=== PATIENT | female | born 1960 | race African-American/Black ===

== ENCOUNTER 2017-07-06 05:50 | Inpatient (IN) | payer MEDICARE, OTHER ==
[~2017-07-06] VITALS: Ht 170.2 cm; Wt 80.9 kg
[~2017-07-06 05:50] MED LIST: ALBU8.5H3 IH; AMLO-512 PO; AMLO10TA55 PO; ASPI81TA39 PO; BISA5TAB12 PO; CALC-895 PO; CYCL10 PO; ESTR-95 PO; MELO-107 PO; OMEP20 PO; PERCT10 PO; PREM125 PO; PROV5 PO
[2017-07-06] MEDS ORDERED: CeFAZolin 2 GM/DEXTROSE 50 ML IV ONE ×2 (05:57→08:00)
[2017-07-06] MEDS ORDERED: RINGERS SOLUTION,LACTATED 1,000 ML IV ONE ×2 (05:57→06:00)
[2017-07-06] MEDS ORDERED: VANCOMYCIN HCL 1 GM/VIAL ONE (06:56)
[2017-07-06] MEDS ORDERED: BUPIVACAINE HCL/PF 0.5% 30 ML VIAL ONE (06:57)
[2017-07-06] MEDS ORDERED: SODIUM CL IRRIG SOLN BAG 3,000 ML IRRIG ONE (06:58)
[2017-07-06 07:15] LABS: BASOPHILS # (AUTO) 0.01 K/uL (0.00-0.20); BASOPHILS % (AUTO) 0.1 % (0.0-2.0); EOSINOPHILS # (AUTO) 0.28 K/uL (0.00-0.70); EOSINOPHILS % (AUTO) 3.74 % (1.0-6.0); HEMATOCRIT 35.6 % (36-46); HEMOGLOBIN 11.9 g/dL (12.0-16.0); LYMPHOCYTES # (AUTO) 1.5 K/uL (1.0-4.8); LYMPHOCYTES % (AUTO) 19.4 % (22.0-44.0); MEAN CORPUSCULAR HEMOGLOBIN 30.6 pg (26.0-34.0); MEAN CORPUSCULAR HGB CONC 33.4 G/dL (31.0-37.0); MEAN CORPUSCULAR VOLUME 92 fL (80-100); MONOCYTES # (AUTO) 0.6 K/uL (0.1-1.0); MONOCYTES % (AUTO) 8.2 % (2.0-9.0); NEUTROPHILS # (AUTO) 5.1 K/uL (1.8-7.7); NEUTROPHILS % (AUTO) 68.6 % (40.0-70.0); PLATELET COUNT (AUTO) 206 K/uL (150-450); RED BLOOD CELL COUNT(AUTO) 3.89 MIL/uL (4.00-5.20); RED CELL DISTRIBUTION WIDTH 14.8 % (11.5-14.5); WHITE BLOOD COUNT (AUTO) 7.5 K/uL (4.5-11.0)
[2017-07-06] MEDS ORDERED: TRANEXAMIC ACID 1,000 MG in DEXTROSE 5%-WATER 50 ML IV ONE (08:00)
[2017-07-06] MEDS ORDERED: MORPHINE SULFATE 4 MG/ML SYRINGE IVP PRN (08:30)
[2017-07-06] MEDS ORDERED: ZOLPIDEM TARTRATE 5 MG TABLET PO PRN (08:45)
[2017-07-06] MEDS ORDERED: DIAZEPAM 5 MG TABLET PO PRN (08:45)
[2017-07-06] MEDS ORDERED: OXYGEN THERAPY IH SCH (09:45)
[2017-07-06] MEDS ORDERED: MEPERIDINE-PF 25 MG/ML SYRINGE IVP PRN (09:45)
[2017-07-06] MEDS ORDERED: HYDROmorphone 2 MG/ML SYRINGE IVP PRN (09:45)
[2017-07-06] MEDS ORDERED: FentaNYL CITRATE-PF 100 MCG/2 ML VIAL IVP PRN (09:45)
[2017-07-06] MEDS ORDERED: HYDROmorphone 2 MG/ML SYRINGE ONE (09:51)
[2017-07-06] MEDS ORDERED: MEPERIDINE-PF 25 MG/ML SYRINGE ONE (09:51)
[2017-07-06 11:24] VITALS: BP 163/93
[2017-07-06] MEDS: HYDROmorphone 2 MG/ML SYRINGE IVP PRN ×4 (11:54→22:11)
[2017-07-06] MEDS: CYCLOBENZAPRINE HCL 10 MG TABLET PO SCH ×3 (11:54→23:58)
[2017-07-06] MEDS ORDERED: LIDOCAINE HCL/PF 2% 5 ML VIAL INJ ONE (12:00)
[2017-07-06] MEDS ORDERED: ONDANSETRON HCL 4 MG/2 ML VIAL IVP ONE ×2 (12:00→15:15)
[2017-07-06] MEDS ORDERED: KETOROLAC TROMETHAMINE 60 MG/2 ML VIAL IM ONE (12:00)
[2017-07-06] MEDS ORDERED: DEXAMETHASONE SOD PHOS 4 MG/ML VIAL IVP ONE (12:00)
[2017-07-06] MEDS ORDERED: INFLUENZA VIRUS VACCINE QVS 2017-18 (3YR+)/PF 60 MCG/0.5 ML SYRINGE IM ONE (13:00)
[2017-07-06] MEDS: CeFAZolin 2 GM/DEXTROSE 50 ML IV SCH ×2 (14:38→22:01)
[2017-07-06 17:00] VITALS: BP 155/106
[2017-07-06] MEDS: KETOROLAC TROMETHAMINE 30 MG/ML VIAL IVP SCH ×2 (17:17→21:00)
[2017-07-06] MEDS: ESTRADIOL 1 MG TABLET PO SCH (17:17)
[2017-07-06] MEDS: MedroxyPROGESTERone ACET 5 MG TABLET PO SCH (17:18)
[2017-07-06] MEDS: ESTROGENS,CONJUGATED 1.25 MG TABLET PO SCH (17:18)
[2017-07-06] MEDS: AmLODIPine BESYLATE 10 MG TABLET PO SCH (17:19)
[2017-07-06 17:50] VITALS: BP 157/86
[2017-07-06] MEDS: ONDANSETRON HCL 4 MG/2 ML VIAL IVP PRN (18:38)
[2017-07-06] MEDS: ACETAMINOPHEN 1000 MG/ISO-OSM 100 ML IV SCH ×2 (18:40→23:57)
[2017-07-06 20:00] VITALS: BP 145/100
[2017-07-06 23:58] VITALS: BP 150/87
[2017-07-07] MEDS: HYDROmorphone 2 MG/ML SYRINGE IVP PRN ×6 (01:21→20:56)
[2017-07-07] MEDS: KETOROLAC TROMETHAMINE 30 MG/ML VIAL IVP SCH ×4 (04:44→20:57)
[2017-07-07] MEDS ORDERED: PNEUMOCOCCAL VACCINE POLYVALENT 0.5 ML VIAL [PPSV23] IM ONE (04:45)
[2017-07-07 05:00] VITALS: BP 155/82
[2017-07-07] MEDS: CeFAZolin 2 GM/DEXTROSE 50 ML IV SCH (06:15)
[2017-07-07] MEDS: CYCLOBENZAPRINE HCL 10 MG TABLET PO SCH ×3 (06:15→18:06)
[2017-07-07] MEDS: ESTRADIOL 1 MG TABLET PO SCH (08:29)
[2017-07-07] MEDS: MedroxyPROGESTERone ACET 5 MG TABLET PO SCH (08:29)
[2017-07-07] MEDS: ESTROGENS,CONJUGATED 1.25 MG TABLET PO SCH (08:30)
[2017-07-07] MEDS: ACETAMINOPHEN 1000 MG/ISO-OSM 100 ML IV SCH ×2 (08:51→16:00)
[2017-07-07] MEDS: ENOXAPARIN SODIUM 40 MG/0.4 ML PF SYRINGE SQ SCH ×2 (08:52→09:09)
[2017-07-07] MEDS: AmLODIPine BESYLATE 10 MG TABLET PO SCH (09:12)
[2017-07-07 09:16] VITALS: BP 151/95
[2017-07-07] MEDS: OxyCODONE HCL/ACETAMINOPHEN 5-325 MG TABLET PO PRN (10:25)
[2017-07-07] MEDS ORDERED: HYDROmorphone 2 MG/ML SYRINGE IVP ONE (12:00)
[2017-07-07] MEDS ORDERED: FentaNYL CITRATE-PF 100 MCG/2 ML VIAL IVP ONE (12:02)
[2017-07-07 13:00] VITALS: BP 124/83
[2017-07-07] MEDS: ONDANSETRON HCL 4 MG/2 ML VIAL IVP PRN (14:12)
[2017-07-07 19:45] VITALS: BP 122/72
[2017-07-08] VITALS (7 sets, daily range): BP systolic 109–125; BP diastolic 60–82
[2017-07-08] MEDS: HYDROmorphone 2 MG/ML SYRINGE IVP PRN ×4 (01:39→10:20)
[2017-07-08] MEDS ORDERED: FentaNYL CITRATE-PF 100 MCG/2 ML VIAL IVP ONE (01:39)
[2017-07-08] MEDS: CYCLOBENZAPRINE HCL 10 MG TABLET PO SCH ×3 (01:39→12:09)
[2017-07-08] MEDS ORDERED: MIDAZOLAM HCL 2 MG/2 ML VIAL IVP ONE (01:39)
[2017-07-08] MEDS: KETOROLAC TROMETHAMINE 30 MG/ML VIAL IVP SCH ×2 (03:27→08:40)
[2017-07-08] MEDS: ENOXAPARIN SODIUM 40 MG/0.4 ML PF SYRINGE SQ SCH (08:38)
[2017-07-08] MEDS: ESTRADIOL 1 MG TABLET PO SCH (08:39)
[2017-07-08] MEDS: AmLODIPine BESYLATE 10 MG TABLET PO SCH (08:39)
[2017-07-08] MEDS: ESTROGENS,CONJUGATED 1.25 MG TABLET PO SCH (08:40)
[2017-07-08] MEDS: MedroxyPROGESTERone ACET 5 MG TABLET PO SCH (08:40)
[2017-07-08] MEDS: OxyCODONE HCL/ACETAMINOPHEN 5-325 MG TABLET PO PRN (13:14)
[2017-07-08] MEDS ORDERED: ENOX40DI9 SQ ×2 (15:11→15:16)
== END 2017-07-08 16:00 | disposition home or self-care (01) | DRG 470 ==
LOC: 4E 05:50
PROVIDERS: ADMIT Orthopaedic Surgery; ATTEND Orthopaedic Surgery
PROC: 0SRD0J9 Replacement of Left Knee Joint with Synthetic Substitute, Cemented, Open Approach (ICD-10-PCS; principal; 2017-07-06 07:30)
DX: M17.12 Unilateral primary osteoarthritis, left knee (principal); I10 Essential (primary) hypertension; Z83.3 Family history of diabetes mellitus
CPT/HCPCS: 87081; 88300; 97110; 97116; 97140; 97163; 97165; 97530; 97535; J0131; J0690; J1100; J1170; J1650; J1885; J2175; J2250; J2270; J2405; J3010; J3370; J3490; J7060; J7120

== ENCOUNTER → 2017-07-15 | Outpatient (CLI) | payer MEDICARE, OTHER ==
[~2017-07-15] MED LIST changes: -AMLO10TA55 PO; +ENOX40DI9 SQ
== END | disposition home or self-care (01) ==
LOC: RADPV 09:44
PROVIDERS: ATTEND Orthopaedic Surgery
DX: I82.402 Acute embolism and thrombosis of unspecified deep veins of left lower extremity (principal); Z96.652 Presence of left artificial knee joint
CPT/HCPCS: 93971

== ENCOUNTER → 2018-01-04 | Outpatient (CLI) | payer MEDICARE, OTHER | END | disposition home or self-care (01) | LOC: RADPV 09:24 | PROVIDERS: ATTEND Orthopaedic Surgery | DX: Z47.1 Aftercare following joint replacement surgery (principal); Z96.652 Presence of left artificial knee joint ==

== ENCOUNTER → 2018-04-05 | Outpatient (CLI) | payer MEDICARE, OTHER | END | disposition home or self-care (01) | LOC: LABPV 09:40 | PROVIDERS: ATTEND Orthopaedic Surgery | DX: Z47.1 Aftercare following joint replacement surgery (principal); Z96.652 Presence of left artificial knee joint ==

== ENCOUNTER → 2018-04-19 | Outpatient (CLI) | payer MEDICARE, OTHER | END | disposition home or self-care (01) | LOC: RADPV 10:52 | PROVIDERS: ATTEND Physician Assistant Medical | DX: M79.641 Pain in right hand (principal); I10 Essential (primary) hypertension; M19.90 Unspecified osteoarthritis, unspecified site ==

== ENCOUNTER → 2019-02-14 | Outpatient (CLI) | payer MEDICARE, OTHER ==
[~2019-02-14] MED LIST changes: +BISA-151 PO; -BISA5TAB12 PO
== END | disposition home or self-care (01) ==
LOC: RADPV 10:02
PROVIDERS: ATTEND Orthopaedic Surgery
DX: M51.37 Other intervertebral disc degeneration, lumbosacral region (principal); M47.816 Spondylosis without myelopathy or radiculopathy, lumbar region; Z96.652 Presence of left artificial knee joint
CPT/HCPCS: 72100